=== PATIENT | female | born 1945 | race Caucasian/White ===

== ENCOUNTER 2019-01-21 06:42 | Day surgery (SDC) | payer MEDICARE, OTHER ==
[~2019-01-21 06:42] MED LIST: FENTANYL CITRATE INJ/PF 100 MCG/2 ML AMPUL ONE; KETOROLAC TROMETHAMINE 0.45% 4 DROP/0.4 ML DROPERETTE OS PRN; MIDAZOLAM 2 MG/2 ML INJ ONE
[2019-01-21] MEDS: TETRACAINE HCL 0.5% OPH SOLN 4 ML OS PRN ×3 (06:58→07:32)
[2019-01-21] MEDS: TROPICAMIDE 1% OPH SOLN 3 ML OS PRN ×3 (06:59→07:22)
[2019-01-21] MEDS: CYCLOPENTOLATE 0.2%/PHENYLEPHRINE 1% OPH SOLN 2 ML OS PRN ×3 (06:59→07:22)
[2019-01-21] MEDS: BESIFLOXACIN HCL 0.6% OPH SUSP 5 ML BOTTLE OS PRN ×4 (07:00→07:52)
[2019-01-21] MEDS ORDERED: CHONDR SU A NA/HYALUR INTRAOC KIT (SURGICARE) ONE (07:11)
[2019-01-21] MEDS ORDERED: EPINEPHRINE INJ/PF 1 MG/1 ML AMPULE ONE (07:11)
[2019-01-21] MEDS ORDERED: LIDOCAINE 1%/PHENYLEPHRINE 1.5% 1 ML VIAL ONE (07:11)
[2019-01-21] MEDS: DORZOLAMIDE HCL 2%/TIMOLOL MALEAT 0.5% OPH SOLN 10 ML OS PRN ×2 (07:52)
--- NOTE | 2019-01-21 11:39 | [facility] OPERATIVE REPORT E ---
[facility] Operative Report NAME: SHRUTHI DOYLE AGE: 73Y DATE OF SURGERY: 01/21/2019 ROOM: PREOPERATIVE DIAGNOSIS: CATARACT, LEFT EYE. POSTOPERATIVE DIAGNOSIS: CATARACT, LEFT EYE. OPERATION: Cataract extraction with insertion of an IOL of the left eye. SURGEON: DEVONTE MANCILLA M.D. ANESTHESIA: Topical. PROCEDURE: After obtaining appropriate consent, the patient's left eye was prepped and draped in sterile fashion as well as the surgeon in a sterile manner and cataract surgery was started. First a paracentesis blade was used to make a side-port incision. Viscoelastic was used to inflate the anterior chamber. Next a 2.4 mm incision was made with a 2.4 mm blade, clear corneal temporally. A continuous capsulorrhexis was made using a cystotome and Utrata forceps. Following this hydrodissection was carried out to make the lens fully loose and mobile and it was rotated 90 degrees. Following this, a zsmsjb-jqx-anlqcql technique was used to phacoemulsify the lens with a CDE of 8.79. The remaining cortex was removed with irrigation/aspiration. Provisc was instilled into the capsular bag to inflate the bag. A SN60WF, 20.5 diopter lens was placed. The remaining viscoelastic material was removed with irrigation/aspiration. Following this, the incision was found to be watertight. Besivance was instilled into the eye and a protective shield was placed over the eye. The patient returned to the postoperative recovery in stable condition. DICTATING PHYSICIAN: DEVONTE MANCILLA M.D. 1209M 1133 PHY#: [id number] ID: [id number] JOB#: [id number] ACCT: [id number] cc:DEVONTE MANCILLA M.D. >
--- NOTE | 2019-01-21 11:39 | [facility] DISCHARGE SUMMARY E ---
[facility] Discharge Summary NAME: SHRUTHI DOYLE AGE: 73Y ADMITTED: 01/21/2019 DISCHARGED: 01/21/2019 DIAGNOSIS: CATARACT, LEFT EYE. SUMMARY: This is a 73-year-old patient who underwent cataract extraction, left eye. She underwent surgery because she was having difficulty driving at night secondary to glare. DISCHARGE INSTRUCTIONS: She should be on a regular diet, no bending at her waist, and no heavy lifting. She should use her Besivance, Prolensa, and Durezol at 3 p.m. and 8 p.m. and sleep with a rigid shield. I will see her for her 1-day postoperative tomorrow. DICTATING PHYSICIAN: DEVONTE MANCILLA M.D. 1209M 1134 PHY#: [id number] ID: [id number] JOB#: [id number] ACCT: [id number] cc:DEVONTE MANCILLA M.D. >
== END 2019-01-21 08:28 | disposition home or self-care (01) ==
LOC: SC 06:42
PROVIDERS: ATTEND Internal Medicine
DX: H25.12 Age-related nuclear cataract, left eye (principal); I10 Essential (primary) hypertension; Z79.899 Other long term (current) drug therapy
CPT/HCPCS: 66984; V2632; J2250; J3490 ×2; A9270; J0171; J3010; J2370; 142

== ENCOUNTER 2019-02-20 07:52 | Day surgery (SDC) | payer MEDICARE, OTHER ==
[~2019-02-20 07:52] MED LIST changes: +CHONDR SU A NA/HYALUR INTRAOC KIT (SURGICARE) ONE; +EPINEPHRINE INJ/PF 1 MG/1 ML AMPULE ONE; -FENTANYL CITRATE INJ/PF 100 MCG/2 ML AMPUL ONE; +KETOROLAC TROMETHAMINE 0.45% 4 DROP/0.4 ML DROPERETTE OD PRN; -KETOROLAC TROMETHAMINE 0.45% 4 DROP/0.4 ML DROPERETTE OS PRN; +LIDOCAINE 1%/PHENYLEPHRINE 1.5% 1 ML VIAL ONE; -MIDAZOLAM 2 MG/2 ML INJ ONE
[2019-02-20] MEDS: TETRACAINE HCL 0.5% OPH SOLN 4 ML OD PRN ×3 (08:21→08:48)
[2019-02-20] MEDS: TROPICAMIDE 1% OPH SOLN 3 ML OD PRN ×3 (08:22→08:44)
[2019-02-20] MEDS: BESIFLOXACIN HCL 0.6% OPH SUSP 5 ML BOTTLE OD PRN ×4 (08:22→09:08)
[2019-02-20] MEDS: CYCLOPENTOLATE 0.2%/PHENYLEPHRINE 1% OPH SOLN 2 ML OD PRN ×3 (08:22→08:44)
[2019-02-20] MEDS ORDERED: FENTANYL CITRATE INJ/PF 100 MCG/2 ML AMPUL ONE (08:36)
[2019-02-20] MEDS ORDERED: MIDAZOLAM 2 MG/2 ML INJ ONE (08:36)
[2019-02-20] MEDS: DORZOLAMIDE HCL 2%/TIMOLOL MALEAT 0.5% OPH SOLN 10 ML OD PRN ×2 (09:08)
--- NOTE | 2019-02-21 08:30 | [facility] OPERATIVE REPORT E ---
[facility] Operative Report NAME: SHRUTHI DOYLE AGE: 73Y DATE OF SURGERY: 02/21/2019 ROOM: PREOPERATIVE DIAGNOSIS: CATARACT, RIGHT EYE. POSTOPERATIVE DIAGNOSIS: CATARACT, RIGHT EYE. OPERATION: Cataract extraction with insertion of an IOL of the right eye. SURGEON: DEVONTE MANCILLA M.D. ANESTHESIA: Topical. PROCEDURE: After obtaining appropriate consent, the patient's right eye was prepped and draped in sterile fashion as well as the surgeon in a sterile manner and cataract surgery was started. First a paracentesis blade was used to make a side-port incision. Viscoelastic was used to inflate the anterior chamber. Next a 2.4 mm incision was made with a 2.4 mm blade, clear corneal temporally. A continuous capsulorrhexis was made using a cystotome and Utrata forceps. Following this hydrodissection was carried out to make the lens fully loose and mobile and it was rotated 90 degrees. Following this, a mphcbh-ljj-elbnljl technique was used to phacoemulsify the lens with a CDE of 8.79. The remaining cortex was removed with irrigation/aspiration. Provisc was instilled into the capsular bag to inflate the bag. A SN60WF, 20.5 diopter lens was placed. The remaining viscoelastic material was removed with irrigation/aspiration. Following this, the incision was found to be watertight. Besivance was instilled into the eye and a protective shield was placed over the eye. The patient returned to the postoperative recovery in stable condition. DICTATING PHYSICIAN: DEVONTE MANCILLA M.D. 1209M [id number] PHY#: [id number] ID: [id number] JOB#: [id number] ACCT: [id number] cc:DEVONTE MANCILLA M.D. >
--- NOTE | 2019-02-21 08:35 | [facility] DISCHARGE SUMMARY E ---
[facility] Discharge Summary NAME: SHRUTHI DOYLE AGE: 73Y ADMITTED: 02/20/2019 DISCHARGED: 02/20/2019 DIAGNOSIS: CATARACT, RIGHT EYE. SUMMARY: This is a 73-year-old female who underwent cataract extraction, right eye. She underwent surgery because she was having trouble driving at night secondary to glare from headlights. DISCHARGE INSTRUCTIONS: She should be on a regular diet, no bending at her waist, and no heavy lifting. She should use her Vigamox, Ketorolac, and Pred Forte at 3 p.m. and 8 p.m. and sleep with a rigid shield. I will see her for her 1 day postoperative tomorrow. DICTATING PHYSICIAN: DEVONTE MANCILLA M.D. 1209M [id number] PHY#: [id number] ID: [id number] JOB#: [id number] ACCT: [id number] cc:DEVONTE MANCILLA M.D. >
== END 2019-02-20 09:42 | disposition home or self-care (01) ==
LOC: SC 07:52
PROVIDERS: ATTEND Internal Medicine
DX: H25.11 Age-related nuclear cataract, right eye (principal); Z96.1 Presence of intraocular lens; I10 Essential (primary) hypertension; Z79.899 Other long term (current) drug therapy
CPT/HCPCS: 66984; V2632; J2250; J3490 ×2; A9270; J0171; J3010; J2370; 142